=== PATIENT | male | born 1950 | race African-American/Black ===

== ENCOUNTER 2017-01-24 22:56 | Emergency (ER) | payer BC ==
[~2017-01-24] VITALS: Ht 185.4 cm; Wt 127.0 kg
[~2017-01-24 22:56] MED LIST: ANUSOL HC1 SUPP RECTAL; CIPROFLOXACIN500 M2 ORAL; FLOMAX0.4 MG ORAL; LEVAQUIN500 MG ORAL; METRONIDAZOLE500 MG ORAL; NKM; NORCO 5-325 TA1 EACH ORAL; PROSCAR5 MG ORAL; ZOFRAN ODT4 MG ORAL
[2017-01-24 23:30] VITALS: BP 146/92
[2017-01-24] MEDS ORDERED: Ketorolac 60mg Inj IM ONE (23:45)
[2017-01-24] MEDS ORDERED: IBUPROFEN600 MG ORAL (23:58)
[2017-01-24] MEDS ORDERED: CYCLOBENZAPRINE10 MG ORAL (23:58)
[2017-01-25 00:07] VITALS: BP 137/93
--- NOTE | 2017-01-25 02:28 | Emergency Room Report ---
History of Present Illness General Chief Complaint: Lower Back Pain or Injury Source: Patient, Medical Record Present Illness HPI Patient is a 66-year-old male presented after increased low back pain. Patient gradual onset of symptoms. The patient reported having increased cramping to his low back. Patient was having increased difficulty with range of motion. Patient stated this was onset after recent heavy exercise. Patient had prior history of syndrome and low back pain. He denied any recent fever or or dysuria. He denied prior kidney problems. Allergies: Coded Allergies: No Known Allergies (Unverified , 10/12/14) Patient History Past Medical History: see triage record Reviewed Nursing Documentation: PMH: Agreed, PSxH: Agreed Nursing Documentation-PMH Hx Cardiac Problems: No Hx Cancer: No Hx Neurological Problems: No Review of Systems All Other Systems: negative except mentioned in HPI Physical Exam Vital Signs Date Time Temp Pulse Resp B/P Pulse Ox O2 Delivery O2 Flow Rate FiO2 01/24/17 23:17 98.4 74 16 149/90 99 01/24/17 23:30 Room Air General Appearance: well appearing, no apparent distress, alert, GCS 15 Head: normocephalic, atraumatic ENT: hearing grossly normal, normal voice Neck: full range of motion, supple Respiratory: no respiratory distress, speaking full sentences Cardiovascular #1: regular rate, rhythm, no edema Gastrointestinal: normal bowel sounds, non tender, soft Musculoskeletal: no calf tenderness, decreased range of mation Neurologic: alert, oriented x3, responsive, normal gait Psychiatric: mood/affect normal Skin: no rash Medical Decision Making Diagnostic Impression: Primary Impression: Back spasm ER Course Patient presented for low back pain. Differential diagnosis included but was not limited to herniated disc, cauda equina syndrome, abdominal aortic aneurysm , perforated ulcer, spinal epidural abscess, spinal stenosis, lumbar fracture, metastatic lesion, pyelonephritis. Because of complexity of patient's case imaging studies were ordered. The patient noted have a somewhat advanced age and x-ray imaging was ordered to rule out lesions in lumbar spine. X-ray imaging previous interpreted by me showed normal bony alignment without evident fracture or dislocation. Degenerative changes are noted.The patient is advised to follow up with primary care doctor in 1-2 days. Patient is advised to return if any worsening condition or if any changes in status that are concerning. Last Vital Signs Date Time Temp Pulse Resp B/P Pulse Ox O2 Delivery O2 Flow Rate FiO2 01/25/17 00:07 98.6 80 15 137/93 100 Room Air Status: improved Disposition: HOME, SELF-CARE Condition: Stable Scripts Cyclobenzaprine Hcl* (FLEXERIL*) 10 Mg Tablet 10 MG ORAL THREE TIMES A DAY, #20 TAB Prov: Hilton Cardoso 01/24/17 Ibuprofen* (MOTRIN*) 600 Mg Tablet 600 MG ORAL Q8H Y for For Pain, #30 TAB 0 Refills Prov: Hilton Cardoso 01/24/17 Patient Instructions: Lumbosacral Strain Hilton Cardoso Jan 25, 2017 02:28
--- NOTE | 2017-01-25 12:42 | Diagnostic Imaging Report ---
Indication: Back pain Comparison: None Findings: 3 views of the lumbar spine were obtained. No acute fracture or malalignment is identified. Vertebral body heights and disk spaces are well maintained. Posterior elements are unremarkable. Impression: No acute findings.
== END 2017-01-25 | disposition home or self-care (01) ==
LOC: EMR 23:35
DX: M62.830 Muscle spasm of back (principal)
CPT/HCPCS: 72110; 96372; 99284

== ENCOUNTER 2017-06-23 07:56 | Day surgery (SDC) | payer BC ==
[~2017-06-23] VITALS: Ht 185.4 cm; Wt 127.0 kg
[~2017-06-23 07:56] MED LIST changes: +CYCLOBENZAPRINE10 MG ORAL; +IBUPROFEN600 MG ORAL
[2017-06-23] MEDS ORDERED: fentaNYL 100 mcg/2 mL IV ONE (07:57)
[2017-06-23] MEDS ORDERED: Midazolam 2mg/2ml Inj ONE (07:57)
[2017-06-23] MEDS ORDERED: Propofol 10mg/ml 20ml IV ONE (07:57)
[2017-06-23] MEDS ORDERED: NKM (08:14)
[2017-06-23 08:50] VITALS: BP 133/89
--- NOTE | 2017-06-23 09:19 | Pre-Procedure Note/Attestation ---
Pre-Procedure Note/Attestation Complete Prior to Procedure Planned Procedure: not applicable Procedure Narrative: colonoscopy Indications for Procedure Pre-Operative Diagnosis: screening Attestation I attest that I discussed the nature of the procedure; its benefits; risks and complications; and alternatives (and the risks and benefits of such alternatives ), prior to the procedure, with the patient (or the patient's legal site safety representative). I attest that, if there was a reasonable possibility of needing a blood transfusion, the patient (or the patient's legal site safety representative) was given the [facility] standardized written summary, pursuant to the Salbador Decker Blood Safety Act ([place] Health and Safety Code # 1645, as amended). I attest that I re-evaluated the patient just prior to the surgery and that there has been no change in the patient's H&P, except as documented below: MARILU CONDON Jun 23, 2017 09:19
--- NOTE | 2017-06-23 09:20 | Short Stay Surgery H&P ---
History of Present Illness History of Present Illness Chief Complaint screening see recent consult note HPI Zeb Mccartney is a 66 year old male who was admitted on for Colon Screening Patient History Allergies: Coded Allergies: No Known Allergies (Unverified , 10/12/14) PAST MEDICAL HISTORY: Past Surgeries: Social History: Medication History Scheduled Cyclobenzaprine Hcl* (Flexeril*), 10 MG ORAL THREE TIMES A DAY Finasteride* (Proscar*), 5 MG ORAL DAILY, (Reported) No Known Medications* (NKM - No Known Medications*), 0 ., (Reported) Scheduled PRN Ibuprofen* (Motrin*), 600 MG ORAL Q8H PRN for For Pain Ondansetron Odt* (Zofran Odt*), 4 MG ORAL Q6H PRN for Nausea & Vomiting Physical Exam Vital Signs Last Vital Signs Date Time Temp Pulse Resp B/P Pulse Ox O2 Delivery O2 Flow Rate FiO2 06/23/17 08:50 97.1 64 17 133/89 95 Room Air Plan Attestation Are the patient's medical conditions optimized for surgery? MARILU CONDON Jun 23, 2017 09:20
--- NOTE | 2017-06-23 09:53 | Anethesia Preoperative Eval ---
Anesthesia Pre-op PMH/ROS General Date of Evaluation: Jun 23, 2017 Time of Evaluation: 09:26 ASA Score: ASA 2 Mallampati Score Class I : Soft palate, uvula, fauces, pillars visible Class II: Soft palate, uvula, fauces visible Class III: Soft palate, base of uvula visible Class IV: Only hard plate visible Mallampati Classification: Class II Anesthesia History: none Family History: no anesthesia problems Allergies: Coded Allergies: No Known Allergies (Unverified , 10/12/14) Anesthesia Pre-op Phys. Exam Physician Exam Last Vital Signs Date Time Temp Pulse Resp B/P Pulse Ox O2 Delivery O2 Flow Rate FiO2 06/23/17 08:50 97.1 64 17 133/89 95 Room Air Constitutional: NAD Neurologic: CN 2-12 intact Cardiovascular: RRR Respiratory: CTA Airway Exam Mallampati Score: Class II ROM: full Teeth: intact Anesthesia Pre-op A/P Risk Assessment & Plan Status Change Before Surgery: No Pre-Antibiotics Given Within 1 Hr of Incision: No Michele Lam M.D. Jun 23, 2017 09:53
--- NOTE | 2017-06-23 09:57 | Immediate Post-Op Evaluation ---
Immediate Post-Op Evalulation Immediate Post-Op Evalulation Procedure: colonoscopy Date of Evaluation: Jun 23, 2017 Time of Evaluation: 10:30 IV Fluids: 100 Estimated Blood Loss: 0 Urinary Output: 0 Blood Pressure Systolic: 118 Blood Pressure Diastolic: 88 Pulse Rate: 77 Respiratory Rate: 16 O2 Sat by Pulse Oximetry: 97 Temperature (Fahrenheit): 97.3 Pain Score (1-10): 0 Nausea: No Vomiting: No Patient Status: awake, reacts Hydration Status: adequate Given Within 1 Hr of Incision: No Michele Lam M.D. Jun 23, 2017 09:57
--- NOTE | 2017-06-23 10:01 | 48 Hour Post Anesthesia Eval ---
Post Anesthesia Evaluation Procedure: colonoscopy Date of Evaluation: Jun 23, 2017 Nausea: No Vomiting: No Hydration Status: adequate Mental Status/LOC: patient returned to baseline Follow-up care needed: ready to discharge Michele Lam M.D. Jun 23, 2017 10:01
--- NOTE | 2017-06-23 10:06 | Endoscopy Procedure Note ---
Endoscopy Procedure Note Indication for Procedure: screening Procedures Performed: colonoscopy Operative Findings/Diagnosis: hemorrhoids Specimen: none Pt Tolerated Procedure Well: Yes Estimated Blood Loss: none Anesthesiologist: see chart Anesthesia: MAC 50 yrs or older w/o bx or poly: Not Applicable 10yrs. F/U not recommended: Not Applicable MARILU CONDON Jun 23, 2017 10:06
[2017-06-23 10:24] VITALS: BP 138/78
[2017-06-23 10:50] VITALS: BP 137/84
[2017-06-23 11:05] VITALS: BP 137/78
--- NOTE | 2017-06-23 12:30 | Procedure Note ---
DATE OF PROCEDURE: 06/23/2017 SURGEON: Washington Gandhi M.D. PROCEDURE: Colonoscopy. ANESTHESIA: See anesthesia list. INSTRUMENT: Olympus adult flexible upper endoscope and colonoscope. INDICATION: Screening colonoscopy evaluation. REASON FOR PROCEDURE: The procedure, risks, benefits, and possible consequences, including hemorrhage, aspiration, perforation and infection, and alternative treatments, were explained to the patient/legal guardian by Dr. Washington Gandhi and the patient/legal guardian understood and accepted these risks. DESCRIPTION OF PROCEDURE: After informed consent was obtained, the patient was adequately sedated, Olympus upper endoscope was advanced distally First rectal exam was performed, which was normal. Then, the scope was advanced from the rectum into the cecum, the appendix orifice, ileocecal valve, and right upper quadrant palpation. Quality of prep was very good. The patient had normal colonoscopy examination. Retroflexion of rectum showed evidence of internal hemorrhoids. SUMMARY OF FINDINGS: 1. Normal colonoscopy examination without any mass, polyp, diverticulosis or any pathology. 2. Retroflexion rectum showed evidence of small internal hemorrhoids. RECOMMENDATIONS: At this time, there is no active findings. We will comment colonoscopy reviewed in 7 to 10 years. Washington Gandhi M.D. DR: GABINO JOB#: [id number] CC:
== END 2017-06-23 11:35 | disposition home or self-care (01) ==
LOC: GAS 07:56
DX: Z12.11 Encounter for screening for malignant neoplasm of colon (principal); K64.8 Other hemorrhoids
CPT/HCPCS: 45378; J2250; J2704; J3010; 94003; 94150